=== PATIENT | female | born 1965 | race Asian ===

== ENCOUNTER 2022-10-24 00:26 | Day surgery (SDC) | payer OTHER, SELFPAY ==
[2022-10-17 12:39] VITALS: BMI 19.5
--- NOTE | 2022-10-21 13:15 | PM.HPGS ---
History of Present Illness History of Present Illness Consent: Risks, benefits, and alternatives have been discussed and questions answered. Patient agrees to proceed with procedure. Chief complaint: neoplasm screening Narrative: Mary Chau is a 57 year old female Referred for colon cancer screening. Review of Systems Review of Systems: All systems reviewed & are unremarkable except as noted in HPI and below PMFSH Social History Social History Living arrangements: with family Additional living arrangements comments: [phone] Spiritual care concerns: No Meds Home Medications and Allergies Home Medications Medication Instructions Recorded Confirmed Type Lactobacillus 1 cap PO DAILY 10/17/22 10/17/22 History acidophilus-Bifidobac.animalis 2.5 billion cell capsule (Daily Probiotic) calcium carbonate 600 mg-vitamin 1 tablet PO DAILY 10/17/22 10/17/22 History D3 5 mcg (200 unit) tablet multivit with minerals-iron 18 1 tablet PO DAILY 10/17/22 10/17/22 History mg-folic ac 400 mcg-vit K 25 mcg tablet (Adults Multivitamin) Allergies Allergy/AdvReac Type Severity Reaction Status Date / Time No Known Allergies Allergy Verified 10/24/22 06:50 Exam Const: General: alert Orientation/consciousness: patient oriented x3 Resp: Auscultation: clear to auscultation bilaterally Cardio: Rate: regular rate Rhythm: regular rhythm GI: GI Palp: Yes Soft to palpation and No Tenderness to palpation present (GI) Neuro: General: patient oriented x3 Assessment and Plan Assessment and plan (1) Colon cancer screening: Code(s): Z12.11 - Encounter for screening for malignant neoplasm of colon Status: Acute Assessment and Plan: Colonoscopy with possible biopsy or polypectomy or cautery or injection of substances.
[2022-10-24 06:51] VITALS: BP 121/74; PULSE 89; RESP 17; TEMP 36.6; O2SAT 99
[2022-10-24] MEDS: LACTATED RINGERS 1,000 ML 150 ML IV CONT (07:01)
--- NOTE | 2022-10-24 07:33 | P.PNAN_ITS ---
Anes - Initial Pre Proc Eval Procedure: Operation Date: 10/24/22 08:00 Proposed Procedures p Screening Colonoscopy - Ben Valente MD Date/Time: 10/24/22 07:33 Surgeon: Ben Valente MD Pre Op Diagnosis: neoplasm screening Patient Data Age: 57 Gender: F Height: 1.6 m Weight: 49 kg Last Vital Signs Temp 97.8 F 10/24/22 06:51 Pulse 89 10/24/22 06:51 Resp 17 10/24/22 06:51 BP 121/74 10/24/22 06:51 Pulse Ox 99 10/24/22 06:51 O2 Del Method Room Air 10/24/22 06:51 Allergies Allergy/AdvReac Type Severity Reaction Status Date / Time No Known Allergies Allergy Verified 10/24/22 06:50 Home Medications Medication Instructions Recorded Confirmed Type Lactobacillus 1 cap PO DAILY 10/17/22 10/17/22 History acidophilus-Bifidobac.animalis 2.5 billion cell capsule (Daily Probiotic) calcium carbonate 600 mg-vitamin 1 tablet PO DAILY 10/17/22 10/17/22 History D3 5 mcg (200 unit) tablet multivit with minerals-iron 18 1 tablet PO DAILY 10/17/22 10/17/22 History mg-folic ac 400 mcg-vit K 25 mcg tablet (Adults Multivitamin) Patient hx anesthesia problems: none Family hx anesthesia problems: none Results Review: All pre-operative results and documents have been reviewed as part of the pre- operative evaluation. [facility] Social History Social History Living arrangements: with family Additional living arrangements comments: [phone] Spiritual care concerns: No Anes - Eval Final PreProcedure Day of Procedure 10/24/22 07:33 Patient weight: normal Heart: regular rate and rhythm Lungs: clear to auscultation Airway: Mallampati scale class II Neurological: alert and oriented Last oral intake: >/= 8 hours ASA classification: II Emergent: no Anesthetic plan: proceed Anesthesia type and monitoring: general GIVS and standard monitoring Results Review: All pre-operative results and documents have been reviewed as part of the pre- operative evaluation. Informed Consent: The patient's anesthetic plan and its attendant risks and benefits were discussed with the patient/family/POA. Questions were solicited and answers provided to the satisfaction of the patient/family/POA.
[2022-10-24] MEDS: SIMETHICONE ORAL SUSPENSION 20 MG/0.3 ML 30 ML BOTTLE 0.6 ML IRRIGATION (07:54)
[2022-10-24 08:03] VITALS: BP 86/42; PULSE 86; RESP 18; O2SAT 98
[2022-10-24 08:13] VITALS: BP 95/54; PULSE 76; RESP 20; O2SAT 98
[2022-10-24 08:23] VITALS: BP 100/61; PULSE 60; RESP 18; O2SAT 100
== END 2022-10-24 08:35 | disposition home or self-care (01) ==
PROVIDERS: PCP Family Medicine; Visit Provider Internal Medicine Gastroenterology
PROC: 0DJD8ZZ Inspection of Lower Intestinal Tract, Via Natural or Artificial Opening Endoscopic (ICD-10-PCS; CPT 45378; principal; 2022-10-24 08:00)
DX: Z12.11 Encounter for screening for malignant neoplasm of colon (principal)
CPT/HCPCS: 45378; J2704; J7120

== ENCOUNTER 2024-11-01 08:20 | Outpatient (CLI) | payer OTHER, SELFPAY ==
--- NOTE | ~2024-11-01 | XR_ITS ---
Left elbow Technique: AP, oblique, and lateral views were obtained. Clinical History: Pain Findings: No acute fracture or dislocation is seen. Osseous alignment is anatomic. Joint spaces are p reserved. There is no displacement of the fat pads, and soft tissues are unremarkable. Impression: Unremarkable radiographs. Reviewed, dictated and finalized at location . [employer] Impression: Unremarkable radiographs.
--- NOTE | ~2024-11-01 | XR_ITS ---
Right elbow Technique: AP, oblique, and lateral views were obtained. Clinical History: Pain Findings: No acute fracture or dislocation is seen. Osseous alignment is anatomic. Joint spaces are p reserved. There is no displacement of the fat pads, and soft tissues are unremarkable. Impression: Unremarkable radiographs. Reviewed, dictated and finalized at [facility]. [employer] Impression: Unremarkable radiographs.
--- NOTE | ~2024-11-01 | XR_ITS ---
EXAMINATION: XR ankle LT min 3V DATE: 11/01/2024 08:46 INDICATION: Left ankle pain TECHNIQUE: Anteroposterior, oblique, mortise, and lateral views of the left ankle were obtained. COMPARISON: None. FINDINGS: Alignment is normal. No fracture. Joint spaces are well maintained. No ankle joint effusion. The so ft tissues are unremarkable. IMPRESSION: 1. Negative left ankle radiographs. Reviewed, dictated and finalized at location A. [employer]
== END 2024-11-01 08:21 | disposition home or self-care (01) ==
PROVIDERS: PCP Nurse Practitioner Family; Visit Provider Nurse Practitioner Family
DX: M77.01 Medial epicondylitis, right elbow (principal); M77.02 Medial epicondylitis, left elbow; M25.572 Pain in left ankle and joints of left foot
CPT/HCPCS: 73080; 73610

== ENCOUNTER 2024-12-26 08:30 | Outpatient (CLI) | payer OTHER, SELFPAY ==
--- NOTE | ~2024-12-26 | MM_ITS ---
EXAMINATION: MM screening [facility] BI w vanessa HISTORY: Screening TECHNIQUE: Craniocaudal and mediolateral oblique 3-D tomosynthesis images were obtained and synthetic 2-D images were generated. CAD analysis was submitted and interpreted. COMPARISON: 08/31/2011 BREAST PARENCHYMAL COMPOSITION: Dense: The breasts are heterogeneously dense, which may obscure small masses FINDINGS: There is a new mass in the lower inner quadrant of the left breast, middle third with assoc iated peripheral coarse calcifications. The right breast is stable without evidence for malignancy. IMPRESSION: 1. New left breast mass. 2. Additional mammographic views and possible breast ultrasound are recommended. BI-RADS Category 0: Incomplete: Needs additional imaging evaluation. Reviewed, dictated and finalized at location [] CTURAL IRON ERECTOR IMPRESSION: 1. New left breast mass. 2. Additional mammographic views and possible breast ultrasound are recommended . BI-RADS Category 0: Incomplete: Needs additional imaging evaluation.
--- OUTSIDE RECORDS SUMMARY | 2024-12-26 08:33 | XMS_ITS | Data Portability ---
Author Organization [place] - [facility], Main Office Address [address] [place] [address] Assessment No assessment recorded. Plan of Treatment Reminders Order Date Submit Date Provider Last Modified By Organization Details Last Modified Time Details Appointments None recorded. Lab pap, IG + CT/NG + reflex HR HPV 2022 023 [facility] (Lab), [address] [place], [address], 3 21:13:14 lipid panel, serum 2022 023 [facility] (Lab), [address] [place], [address], 13:28:09 CMP, serum or plasma 2022 023 [facility] (Lab), [address] [place], [address], 13:28:23 Referral None recorded. Procedures None recorded. Surgeries None recorded. Imaging MAMMO, screening, bilateral 2022 023 [email or web address] Not available 08:41:37 bone density 2022 023 LAUREEN Not available 15:32:37 Medication Orders None recorded. Patient TargetsNo targets recorded. Patient InstructionsNo instructions recorded. Reason for Referral None Reported. Results Created Date Observation Date Name Description Value Unit Range Abnormal Flag Note LastModifiedBy Organization Detail LastModifiedTime 05/25/20 21 05/25/2021 LIPID PANEL cholesterol 217 mg/dL 140-19 9 high NIH NANI NSUS RECOM MENDA TION FOR MARANDA STERO L: ADULT CHILD LOW RISK: <200 <170 BORDE RLINE : <200- 239 ----- HIGH RISK: >240 >200 Not Available [facility] (Lab) [address] [place], [address], 05/25/2021 20:20:33 05/25/20 21 05/25/2021 LIPID PANEL triglyceride s 185 mg/dL 0-150 high NIH NANI NSUS REPOR T RECOM MENDA TION FOR TRIGL YCERI GRETCHEN: ADULT CHILD LOW RISK: <150 ----- BODER LINE: 150-1 99 ----- HIGH RISK: >200 ----- Not Available [facility] (Lab) [address] [place], [address], 05/25/2021 20:20:33 05/25/20 21 05/25/2021 LIPID PANEL HDL cholesterol 41 mg/dL 40- Not Available [facility] (Lab) [address] [place], [address], 05/25/2021 20:20:33 05/25/20 21 05/25/2021 LIPID PANEL LDL cholesterol, calculated 139 mg/dL 0-130 high NIH NANI NSUS REPOR T RECOM MENDA TIONS FOR LDL: ADULT CHILD LOW RISK <130 <110 (OPTI MAL LDL) <100 ----- BORDE RLINE : 130-1 59 ----- HIGH RISK: >160 >130 A TRIGL YCERI DE RESUL T >400 INVAL IDATE S THE CALCU LATIO N FOR LDL FRACT IONAT ION - THE LDL RESUL T WILL NOT BE REPOR GRECIA. Not Available [facility] (Lab) [address] [place], [address], 05/25/2021 20:20:33 05/25/20 21 05/25/2021 COMPR EHENS SIRIA METAB OLIC PANEL sodium 141 mmol/ L 137-14 5 Not Available [facility] (Lab) [address] [place], [address], 05/25/2021 20:20:28 05/25/20 21 05/25/2021 COMPR EHENS SIRIA METAB OLIC PANEL potassium 4.2 mmol/ L 3.5-5. 1 Not Available [facility] (Lab) [address] [place], [address], 05/25/2021 20:20:28 05/25/20 21 05/25/2021 COMPR EHENS SIRIA METAB OLIC PANEL chloride 106 mmol/ L 98-107 Not Available [facility] (Lab) [address] [place], [address], 05/25/2021 20:20:28 05/25/20 21 05/25/2021 COMPR EHENS SRIIA METAB OLIC PANEL carbon dioxide 26 mmol/ L 22-30 Not Available [facility] (Lab) [address] [place], [address], 05/25/2021 20:20:28 05/25/20 21 05/25/2021 COMPR EHENS SIRIA METAB OLIC PANEL agap 13.2 mmol/ L 14-22 low Not Available [facility] (Lab) [address] [place], [address], 05/25/2021 20:20:28 05/25/20 21 05/25/2021 COMPR EHENS SIRIA METAB OLIC PANEL glucose 105 mg/dL 70-99 high Not Available [facility] (Lab) [address] [place], [address], 05/25/2021 20:20:28 05/25/20 21 05/25/2021 COMPR EHENS SIRIA METAB OLIC PANEL BUN 15 mg/dL 8-19 Not Available [facility] (Lab) [address] [place], [address], 05/25/2021 20:20:28 05/25/20 21 05/25/2021 COMPR EHENS SIRIA METAB OLIC PANEL creatinine 0.55 mg/dL 0.66-1 .25 low Not Available [facility] (Lab) [address] [place], [address], 05/25/2021 20:20:28 05/25/20 21 05/25/2021 COMPR EHENS SIRIA METAB OLIC PANEL GFR >60 Refer ence Range : [place] GFR Healt hy Adult : >60 mL/mi n/1.7 3 m2 Chron ic Kidne y Disea se: 15-60 mL/mi n/1.7 3 m2 Kidne y Failu re: <15/m L/min /1.73 m2 www.n iddk. nih.g ov MDRD study equat ion hasn' t been valid ated in child hannah <18 yrs of age, pregn ant women , the elder ly >85 yrs of age, or in some racia l or ethni c subgr oups, suc as Hispa nics. Outsi de the valid ated елена eters , estim ated GFR is less accur ate requi ring clini cary judgm ent on a case by case basis . Clini cary inter preta tion for other races and ages must be made by the clini gloria . Futhe rmore , any of th e limit ation s with the use of serum creat inine relat ed to nutri yohannes l statu s o r medic ation usage hasn' t accou nted for the MDRD Study equat ion. For perso ns < 18 yrs of age, a pedia tric GFR calcu lator can be locat ed on the [facility] websi te: https ://rox w.kid jo.o rg/pr ofess ional s/kdo qi/gf r_cal culat or Not Available [facility] (Lab) [address] [place], [address], 05/25/2021 20:20:28 05/25/20 21 05/25/2021 COMPR EHENS SIRIA METAB OLIC PANEL alkaline phosphatase 87 U/L 38-126 Not Available [facility] (Lab) [address] [place], [address], 05/25/2021 20:20:28 05/25/20 21 05/25/2021 COMPR EHENS SIRIA METAB OLIC PANEL alanine aminotransfe rase 27 U/L 0-35 Not Available [facility] (Lab) [address] [place], [address], 05/25/2021 20:20:28 05/25/20 21 05/25/2021 COMPR EHENS SIRIA METAB OLIC PANEL aspartate aminotransfe rase 37 U/L 15-37 Not Available [facility] (Lab) [address] [place], [address], 05/25/2021 20:20:28 05/25/20 21 05/25/2021 COMPR EHENS SIRIA METAB OLIC PANEL bilirubin, total 1.20 mg/dL 0.20-1 .30 Not Available [facility] (Lab) [address] [place], [address], 05/25/2021 20:20:28 05/25/20 21 05/25/2021 COMPR EHENS SIRIA METAB OLIC PANEL calcium 8.9 mg/dL 8.4-10 .2 Not Available [facility] (Lab) [address] [place], [address], 05/25/2021 20:20:28 05/25/20 21 05/25/2021 COMPR EHENS SIRIA METAB OLIC PANEL total protein 7.5 g/dL 6.3-8. 2 Not Available [facility] (Lab) [address] [place], [address], 05/25/2021 20:20:28 05/25/20 21 05/25/2021 COMPR EHENS SIRIA METAB OLIC PANEL albumin 4.6 g/dL 3.4-5. 0 Not Available [facility] (Lab) [address] [place], [address], 05/25/2021 20:20:28 05/25/20 21 05/25/2021 COMPR EHENS SIRIA METAB OLIC PANEL globulin 2.9 g/dL 2.6-4. 2 Not Available [facility] (Lab) [address] [place], [address], 05/25/2021 20:20:28 05/25/20 21 05/25/2021 COMPR EHENS SIRIA METAB OLIC PANEL A/G ratio 1.6 ratio 1.0-2. 0 Not Available [facility] (Lab) [address] [facility] [address] [place], [address], 05/25/2021 20:20:28 08/09/20 22 08/09/2022 COMPR EHENS SIRIA METAB OLIC PANEL sodium 141 mmol/ L 137-14 5 Not Available [facility] (Lab) [address] [place], [address], 08/09/2022 13:24:59 08/09/20 22 08/09/2022 COMPR EHENS SRIIA METAB OLIC PANEL potassium 4.2 mmol/ L 3.5-5. 1 Not Available [facility] (Lab) [address] [place], [address], 08/09/2022 13:24:59 08/09/20 22 08/09/2022 COMPR EHENS SIRIA METAB OLIC PANEL chloride 105 mmol/ L 98-107 Not Available [facility] (Lab) [address] [place], [address], 08/09/2022 13:24:59 08/09/20 22 08/09/2022 COMPR EHENS SIRIA METAB OLIC PANEL carbon dioxide 31 mmol/ L 22-30 high Not Available [facility] (Lab) [address] [place], [address], 08/09/2022 13:24:59 08/09/20 22 08/09/2022 COMPR EHENS SIRIA METAB OLIC PANEL anion gap 9.2 mmol/ L 14-22 low Not Available [facility] (Lab) [address] [place], [address], 08/09/2022 13:24:59 08/09/20 22 08/09/2022 COMPR EHENS SIRIA METAB OLIC PANEL glucose 98 mg/dL 70-99 Not Available [facility] (Lab) [address] [place], [address], 08/09/2022 13:24:59 08/09/20 22 08/09/2022 COMPR EHENS SIRIA METAB OLIC PANEL BUN 19 mg/dL 8-19 Not Available [facility] (Lab) [address] [place], [address], 08/09/2022 13:24:59 08/09/20 22 08/09/2022 COMPR EHENS SIRIA METAB OLIC PANEL creatinine 0.57 mg/dL 0.66-1 .25 low Not Available [facility] (Lab) [address] [place], [address], 08/09/2022 13:24:59 08/09/20 22 08/09/2022 COMPR EHENS SIRIA METAB OLIC PANEL GFR >60 Refer ence Range : [place] GFR Healt hy Adult : >60 mL/mi n/1.7 3 m2 Chron ic Kidne y Disea se: 15-60 mL/mi n/1.7 3 m2 Kidne y Failu re: <15/m L/min /1.73 m2 www.n iddk. nih.g ov The MDRD study equat ion has not been valid ated in child hannah <18 years of age; pregn ant women ; the elder ly >85 years of age; or in some racia l or ethni c subgr oups, such as Hispa nics. Outsi de the valid ated елена eters , estim ated GFR is less accur ate, requi ring clini cary judgm ent on a case- by-ca se basis . Clini cray inter preta tion for other races and ages must be made by the clini gloria. The MDRD study equat ion has not been valid ated for the evalu ation of serum creat inine relat ed to nutri yohannes l statu s or medic ation usage . For perso ns <18 years of age, a pedia tric GFR calcu lator is avail able on the [facility] websi te: https ://rox jenkins.sharmaine osorio.o rg/pr ofess ional s/kdo qi/gf r_cal culat or Not Available [facility] (Lab) [address] [place], [address], 08/09/2022 13:24:59 08/09/20 22 08/09/2022 COMPR EHENS SIRIA METAB OLIC PANEL alkaline phosphatase 69 U/L 38-126 Not Available [facility] (Lab) [address] [place], [address], 08/09/2022 13:24:59 08/09/20 22 08/09/2022 COMPR EHENS SIRIA METAB OLIC PANEL alanine aminotransfe rase 27 U/L 0-35 Not Available [facility] (Lab) [address] [place], [address], 08/09/2022 13:24:59 08/09/20 22 08/09/2022 COMPR EHENS SIRIA METAB OLIC PANEL aspartate aminotransfe rase 29 U/L 15-37 Not Available [facility] (Lab) [address] [place], [address], 08/09/2022 13:24:59 08/09/20 22 08/09/2022 COMPR EHENS SIRIA METAB OLIC PANEL bilirubin, total 1.00 mg/dL 0.20-1 .30 Not Available [facility] (Lab) [address] [place], [address], 08/09/2022 13:24:59 08/09/20 22 08/09/2022 COMPR EHENS SIRIA METAB OLIC PANEL calcium 9.1 mg/dL 8.4-10 .2 Not Available [facility] (Lab) [address] [place], [address], 08/09/2022 13:24:59 08/09/20 22 08/09/2022 COMPR EHENS SIRIA METAB OLIC PANEL total protein 7.2 g/dL 6.3-8. 2 Not Available [facility] (Lab) [address] [place], [address], 08/09/2022 13:24:59 08/09/20 22 08/09/2022 COMPR EHENS SIRIA METAB OLIC PANEL albumin 4.4 g/dL 3.4-5. 0 Not Available [facility] (Lab) [address] [place], [address], 08/09/2022 13:24:59 08/09/20 22 08/09/2022 COMPR EHENS SIRIA METAB OLIC PANEL globulin 2.8 g/dL 2.6-4. 2 Not Available [facility] (Lab) [address] [place], [address], 08/09/2022 13:24:59 08/09/20 22 08/09/2022 COMPR EHENS SIRIA METAB OLIC PANEL A/G ratio 1.6 ratio 1.0-2. 0 Not Available [facility] (Lab) [address] [place], [address], 08/09/2022 13:24:59 08/09/20 22 08/09/2022 HEMOG LOBIN A1C HA1C 5.4 % 4.0-6. 0 Diabe kiko Scree evangelista Crite ari: <5.7% Consi stent with absen ce of diabe kiko 5.7-6 .4% Consi stent with incre ased risk for diabe kiko (pred iabet es) >OR=6 .5% Consi stent with diabe kiko REFER ENCE: Diabe kiko Care 2016, 39(Francisco ppl.1 ):s13 -s22 Not Available [facility] (Lab) [address] [place], [address], 08/09/2022 13:24:53 08/09/20 22 08/09/2022 LIPID PANEL cholesterol 125 mg/dL 140-19 9 low NIH NANI NSUS RECOM MENDA TION FOR MARANDA STERO L: ADULT CHILD LOW RISK: <200 <170 BORDE RLINE : <200- 239 ----- HIGH RISK: >240 >200 Not Available [facility] (Lab) [address] [place], [address], 08/09/2022 13:24:51 08/09/20 22 08/09/2022 LIPID PANEL triglyceride s 106 mg/dL 0-150 NIH NANI NSUS REPOR T RECOM MENDA TION FOR TRIGL YCERI GRETCHEN: ADULT CHILD LOW RISK: <150 ----- BODER LINE: 150-1 99 ----- HIGH RISK: >200 ----- Not Available [facility] (Lab) [address] [place], [address], 08/09/2022 13:24:51 08/09/20 22 08/09/2022 LIPID PANEL HDL cholesterol 44 mg/dL 40- Not Available [facility] (Lab) [address] [place], [address], 08/09/2022 13:24:51 08/09/20 22 08/09/2022 LIPID PANEL LDL cholesterol, calculated 60 mg/dL 0-130 NIH NANI NSUS REPOR T RECOM MENDA TIONS FOR LDL: ADULT CHILD LOW RISK <130 <110 (OPTI MAL LDL) <100 ----- BORDE RLINE : 130-1 59 ----- HIGH RISK: >160 >130 A TRIGL YCERI DE RESUL T >400 INVAL IDATE S THE CALCU LATIO N FOR LDL FRACT IONAT ION - THE LDL RESUL T WILL NOT BE REPOR GRECIA. Not Available [facility] (Lab) [address] [place], [address], 08/09/2022 13:24:51 09/05/20 23 09/05/2023 LIPID PANEL cholesterol 206 mg/dL 140-19 9 high NIH NANI NSUS RECOM MENDA TION FOR MARANDA STERO L: ADULT CHILD LOW RISK: <200 <170 BORDE RLINE : <200- 239 ----- HIGH RISK: >240 >200 Not Available [facility] (Lab) [address] [place], [address], 09/05/2023 13:28:09 09/05/20 23 09/05/2023 LIPID PANEL triglyceride s 169 mg/dL 0-150 high NIH NANI NSUS REPOR T RECOM MENDA TION FOR TRIGL YCERI GRETCHEN: ADULT CHILD LOW RISK: <150 ----- BODER LINE: 150-1 99 ----- HIGH RISK: >200 ----- Not Available [facility] (Lab) [address] [place], [address], 09/05/2023 13:28:09 09/05/2009/05/2023 LIPID PANEL HDL cholesterol 54 mg/dL 40- Not Available [facility] (Lab) [address] [place], [address], 09/05/2023 13:28:09 09/05/20 23 09/05/2023 LIPID PANEL LDL cholesterol, calculated 118 mg/dL 0-130 NIH NANI NSUS REPOR T RECOM MENDA TIONS FOR LDL: ADULT CHILD LOW RISK <130 <110 (OPTI MAL LDL) <100 ----- BORDE RLINE : 130-1 59 ----- HIGH RISK: >160 >130 A TRIGL YCERI DE RESUL T >400 INVAL IDATE S THE CALCU LATIO N FOR LDL FRACT IONAT ION - THE LDL RESUL T WILL NOT BE REPOR GRECIA. Not Available [facility] (Lab) [address] [place], [address], 09/05/2023 13:28:09 09/05/20 23 09/05/2023 COMPR EHENS SIRIA METAB OLIC PANEL sodium 139 mmol/ L 137-14 5 Not Available [facility] (Lab) [address] [place], [address], 09/05/2023 13:28:23 09/05/2009/05/2023 COMPR EHENS SIRIA METAB OLIC PANEL potassium 4.9 mmol/ L 3.5-5. 1 Not Available [facility] (Lab) [address] [place], [address], 09/05/2023 13:28:23 09/05/2009/05/2023 COMPR EHENS SIRIA METAB OLIC PANEL chloride 105 mmol/ L 98-107 Not Available [facility] (Lab) [address] [place], [address], 09/05/2023 13:28:23 09/05/20 23 09/05/2023 COMPR EHENS SIRIA METAB OLIC PANEL carbon dioxide 28 mmol/ L 22-30 Not Available [facility] (Lab) [address] [place], [address], 09/05/2023 13:28:23 09/05/20 23 09/05/2023 COMPR EHENS SIRIA METAB OLIC PANEL anion gap 10.9 mmol/ L 14-22 low Not Available [facility] (Lab) [address] [place], [address], 09/05/2023 13:28:23 09/05/20 23 09/05/2023 COMPR EHENS SIRIA METAB OLIC PANEL glucose 114 mg/dL 70-99 high Not Available [facility] (Lab) [address] [place], [address], 09/05/2023 13:28:23 09/05/20 23 09/05/2023 COMPR EHENS SIRIA METAB OLIC PANEL BUN 12 mg/dL 8-19 Not Available [facility] (Lab) [address] [place], [address], 09/05/2023 13:28:23 09/05/2009/05/2023 COMPR EHENS SIRIA METAB OLIC PANEL creatinine 0.59 mg/dL 0.66-1 .25 low Not Available [facility] (Lab) [address] [place], [address], 09/05/2023 13:28:23 09/05/2009/05/2023 COMPR EHENS SIRIA METAB OLIC PANEL GFR >60 Refer ence Range : [place] GFR Healt hy Adult : >60 mL/mi n/1.7 3 m2 Chron ic Kidne y Disea se: 15-60 mL/mi n/1.7 3 m2 Kidne y Failu re: <15/m L/min /1.73 m2 www.n iddk. nih.g ov The MDRD study equat ion has not been valid ated in child hannah <18 years of age; pregn ant women ; the elder ly >85 years of age; or in some racia l or ethni c subgr oups, such as Hispa nics. Outsi de the valid ated елена eters , estim ated GFR is less accur ate, requi ring clini cary judgm ent on a case- by-ca se basis . Clini cary inter preta tion for other races and ages must be made by the clini gloria. The MDRD study equat ion has not been valid ated for the evalu ation of serum creat inine relat ed to nutri yohannes l statu s or medic ation usage . For perso ns <18 years of age, a pedia tric GFR calcu lator is avail able on the F websi te: https ://ww w.kid jo.o rg/pr ofess ional s/kdo qi/gf r_cal culat or Not Available [facility] (Lab) [address] [place], [address], 09/05/2023 13:28:23 09/05/2009/05/2023 COMPR EHENS SIRIA METAB OLIC PANEL alkaline phosphatase 83 U/L 38-126 Not Available [facility] (Lab) [address] [place], [address], 09/05/2023 13:28:23 09/05/20 23 09/05/2023 COMPR EHENS SIRIA METAB OLIC PANEL alanine aminotransfe rase 28 U/L 0-35 Not Available [facility] (Lab) [address] [place], [address], 09/05/2023 13:28:23 09/05/20 23 09/05/2023 COMPR EHENS SIRIA METAB OLIC PANEL aspartate aminotransfe rase 37 U/L 15-37 Not Available [facility] (Lab) [address] [place], [address], 09/05/2023 13:28:23 09/05/2009/05/2023 COMPR EHENS SIRIA METAB OLIC PANEL bilirubin, total 1.30 mg/dL 0.20-1 .30 Not Available [facility] (Lab) [address] [place], [address], 09/05/2023 13:28:23 09/05/20 23 09/05/2023 COMPR EHENS SIRIA METAB OLIC PANEL calcium 10.0 mg/dL 8.4-10 .2 Not Available [facility] (Lab) [address] [place], [address], 09/05/2023 13:28:23 09/05/2009/05/2023 COMPR EHENS SIRIA METAB OLIC PANEL total protein 7.8 g/dL 6.3-8. 2 Not Available [facility] (Lab) [address] [place], [address], 09/05/2023 13:28:23 09/05/20 23 09/05/2023 COMPR EHENS SIRIA METAB OLIC PANEL albumin 4.8 g/dL 3.4-5. 0 Not Available [facility] (Lab) [address] [place], [address], 09/05/2023 13:28:23 09/05/20 23 09/05/2023 COMPR EHENS SIRIA METAB OLIC PANEL globulin 3.0 g/dL 2.6-4. 2 Not Available [facility] (Lab) [address] [place], [address], 09/05/2023 13:28:23 09/05/20 23 09/05/2023 COMPR EHENS SIRIA METAB OLIC PANEL A/G ratio 1.6 ratio 1.0-2. 0 Not Available [facility] (Lab) [address] [place], [address], 09/05/2023 13:28:23 09/29/20 23 10/04/2023 PAP THINP REP, REFLE X HPV diagnosis: Commemmanuelle BEVERLY FOR INTRA EPITH ELIAL LESIO N OR MALIG BHAVNA . CELLU TEE BOLES ES ASSOC IATED WITH ATROP HY ARE PRESE NT. Not Available [facility] (Lab) [address] [place], [address], 10/04/2023 19:08:36 09/29/20 23 10/04/2023 PAP THINP REP, REFLE X HPV specimen adequacy: Sandy Infante Satis facto kendrick for evalu ation . Endoc ervic al and/o r squam ous m etapl astic cells (endo cervi cary compo nent) are prese nt. Not Available [facility] (Lab) [address] [place], [address], 10/04/2023 19:08:36 09/29/20 23 10/04/2023 PAP THINP REP, REFLE X HPV performed by: Sandy lee Cytorosendo echkarl wang t (ASCP ) Not Available [facility] (Lab) [address] [place], [address], 10/04/2023 19:08:36 09/29/20 23 10/04/2023 PAP THINP REP, REFLE X HPV . . Not Available [facility] (Lab) [address] [place], [address], 10/04/2023 19:08:36 09/29/20 23 10/04/2023 PAP THINP REP, REFLE X HPV note: Commen t The Pap smear is a scree evangelista test desig veronica to aid in the detec tion of kia ligna nt and malig nant condi tions of the uteri ne cervi x. It is not a diagn ostic proce dure and shoul d not be used as the sole means of detec ting cervi cary cance r. Both false -posi tive and false -nega tive repor ts do occur . . Not Available [facility] (Lab) [address] [place], [address], 10/04/2023 19:08:36 09/29/20 23 10/04/2023 PAP THINP REP, REFLE X HPV test methodology: Commen t This liqui d based ThinP rep(R ) pap test was scree veronica with the use of an image guide d syste m. Not Available [facility] (Lab) [address] [place], [address], 10/04/2023 19:08:36 09/29/20 23 10/04/2023 PAP THINP REP, REFLE X HPV . Commen t The HPV DNA refle x crite ari were not met with this speci men resul t there fore, no HPV testi ng was perfo rmed. . Perfo rmed at: [facility] [place] [address] , [place] [address] Lab Direc tor: Brenden villa MD, Phone : [phone] Not Available [facility] (Lab) [address] [place], [address], 10/04/2023 19:08:36 05/25/20 21 05/25/2021 MAMMO , scree evangelista, bilat eral No observ ation record ed. [id number] [facility] [address], [place], [address], 01/11/2023 20:40:25 05/25/20 21 MAMMO , scree evangelista, digit al, bilat eral [facility] [address], [place] [address] Patien t Name: MARY CEJA Access ion #: [id number] Sex: F : 1964 9 Locati on: MO2 Attend ing Physic timothy: ELKHAT IB, RUNDA Orderi ng Physic timothy: ELKHAT IB, RUNDA Exam Date: 10:21 AM Exam Name: DIGITA L DERRICK BILAT SCREEN Admitt ing Diagno sis(es ): RADIOL OGY REPORT - FINAL EXAM: MG DIGITA L DERRICK BILAT SCREEN HISTOR Y: screen ing mammog clark COMPAR DELANEY: Mammog manjit dated 2018 and 2018 TECHNI QUE: Bilate ral CC and MLO views of the breast s were perfor med. Digita l Mammog manjit images were obtain ed. CAD (compu ter assist ed detect ion) was utiliz ed. FINDIN GS: The breast s are hetero geneou sly dense, which may obscur e small masses . A left lower inner quadra nt mass is again noted. No other masses , asymme tries, suspic ious calcif icatio ns, or jhon ectura l Page 1 of 2 [facility] Name: MARY CEJA Access ion #: [id number] Sex: F : 1964 11 Exam Date: 021 10:21 AM Exam Name: DIGITA L DERRICK BILAT SCREEN Admitt ing Diagno sis(es ): distor tion are seen. IMPRES SHELIA: BIRADS 0: Assess ment incomp lete. Need additi onal imagin g evalua tion. Ultras ound of the left breast mass is recomm ended. Accord ing to the [employer], yearly mammog armen are recomm ended starti ng at age 40 and contin uing as long as the woman is in good health . Clinic al Breast Exam should be part of the period ic health exam-a bout every 3 years for women in their 20s and 30s and every year for women 40 and over. Breast self-e xam is an option for women in their 20s. Any breast change noted on the breast self-e xam she would be report ed prompt ly to the [facility] er. A negati ve mammog manjit report should not discou rage follow -up or biopsy of a clinic ally signif icant findin g and/or abnorm ality. Dense breast tissue may obscur e small neopla sms. This [facility] robbins has been entere d into a mammog manjit remind er system with a target date for her next mammog clark. Create d and electr onical ly signed by: Jarod Mehta ch, DO Signed Date: 2:25 PM (CT) Dictat ed by: Jarod Mehta ch, DO DD: 2:25 PM (CT) DT: 2:25 PM (CT) Page 2 of 2 [id number] [facility] (Imaging) [address] [place], [address], 01/11/2023 20:40:25 06/07/20 21 , steve marc [facility] [address] [place] [address] Lamont robbins Name: MARY CEJA Access ion #: [id number] Sex: F : 1964 7 Locati on: RA2 Attend ing Physic timothy: ELKHAT IB, RUNDA Orderi ng Physic timothy: ELKHAT IB, RUNDA Exam Date: 9:57 AM Exam Name: US BREAST LIMITE D LT Admitt ing Diagno sis(es ): RADIOL OGY REPORT - FINAL EXAM: US BREAST LIMITE D LT HISTOR Y: ABNORM AL MAMM COMPAR DELANEY: Mammog manjit dated 2020, 2018 and ultras ound dated 2018 of the left breast . TECHNI QUE: Focuse d ultras ound evalua tion of the left left breast was perfor med. FINDIN GS: A solid shadow ing ovoid lesion at the 10 o'cloc k positi on 3 cm from the nipple . 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 This has enlarg ed slight ly from prior exam where it measur ed 1.7 x 0.8 x 1.5 cm. Page 1 of 2 [facility] Name: MARY CEJA Access ion #: [id number] Sex: F : 1964 5 Exam Date: 9:57 AM Exam Name: US BREAST LIMITE D LT Admitt ing Diagno sis(es ): IMPRES SHELIA: BIRADS 4a: Suspic ious: Recomm end ultras ound-g uided biopsy of the 1.9 cm left breast hypoec hoic nodule . Recomm end return ing to annual screen ing mammog manjit. Any decisi on to biopsy a suspic ious palpab le abnorm ality would have to be made solely on a clinic al basis. Create d and electr onical ly signed by: Jarod Mehta ch, DO Signed Date: 10:27 AM (CT) Dictat ed by: Jarod Mehta ch, DO DD: 10:27 AM (CT) DT: 10:27 AM (CT) Page 2 of 2 [id number] [facility] (Imaging) [address] [place], [address], 01/11/2023 20:40:25 06/07/20 21 06/07/2021 osman RADFORD, limit ed No observ ation record ed. [id number] [facility] [address] [place], [address], 01/11/2023 20:40:25 06/07/20 21 06/07/2021 osman RADFORD, limit ed No observ ation record ed. [id number] [facility] [address] [place], [address], 01/11/2023 20:40:25 06/07/20 21 USosman, unila teral [facility] [address] [facility] [place] [address] Lexiemmanuelle robbins Name: MARY CEJA KidoZen ion #: [id number] Sex: F : 1964 5 Locati on: RA2 Attend ing Physic timothy: ELKHAT IB, RUNDA Orderi ng Physic timothy: ELKHAT IB, RUNDA Exam Date: 021 11:02 AM Exam Name: US BREAST LIMITE D LT Admitt ing Diagno sis(es ): RADIOL OGY REPORT - FINAL EXAM: US BREAST LIMITE D LT HISTOR Y: ABNORM AL MAMM COMPAR DELANEY: Mammog manjit dated 2020, 2018 and ultras ound dated 2018 of the left breast . TECHNI QUE: Focuse d ultras ound evalua tion of the left breast was perfor med. FINDIN GS: A solid shadow ing ovoid lesion at the 10 o'cloc k positi on 3 cm from the nipple . 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 This has enlarg ed slight ly from prior exam where it measur ed 1.7 x 0.8 x 1.5 cm. Page 1 of 2 [facility] Lamont robbins Name: MARY CEJA Access ion #: [id number] Sex: F : 1964 5 Exam Date: 11:02 AM Exam Name: US BREAST LIMITE D LT Admitt ing Diagno sis(es ): IMPRES SHELIA: BIRADS 4a: Suspic ious: Recomm end ultras ound-g uided biopsy of the 1.9 cm left breast hypoec hoic nodule . Create d and electr onical ly signed by: Jarod Mehta ch, DO Signed Date: 11:15 AM (CT) Dictat ed by: Jarod Mehta ch, DO DD: 11:15 AM (CT) DT: 11:15 AM (CT) Page 2 of 2 [id number] [facility] (Imaging) [address] [place], [address], 01/11/2023 20:40:25 08/09/20 22 08/09/2022 MAMMO , scree evangelista, bilat eral No observ ation record ed. [id number] [facility] Add On Lab Orders [address] [place], [address], 01/11/2023 20:40:25 08/09/20 22 MAMMO , scree evangelista, digit al, bilat eral [facility] [address] [place] [address] Patien t Name: MARY CEJA Access ion #: [id number] Sex: F : 1964 0 Locati on: MO2 Attend ing Physic timothy: ELKHAT IB, RUNDA Orderi ng Physic timothy: ELKHAT IB, RUNDA Exam Date: 8:00 AM Exam Name: MG DIGITA L DERRICK BILAT SCREEN Admitt ing Diagno sis(es ): RADIOL OGY REPORT - FINAL EXAM: MG DIGITA L DERRICK BILAT SCREEN HISTOR Y: screen ing mammog clark 56-yea r-old female with no curren t breast compla ints. The lamont robbins has a histor y of benign excisi onal biopsy of the right breast in 2012. COMPAR DELANEY: 2020, 2018 TECHNI QUE: Bilate ral CC and MLO views of the breast s were perfor med. Digita l Mammog manjit images were obtain ed. CAD (compu ter assist ed detect ion) was utiliz ed. FINDIN GS: The breast s are hetero geneou sly dense, which may obscur e small masses . Page 1 of 2 [facility] Lamont robbins Name: MARY CEJA Access ion #: [id number] Sex: F : 1964 0 Exam Date: 022 8:00 AM Exam Name: MG DIGITA L DERRICK BILAT SCREEN Admitt ing Diagno sis(es ): There is a stable left mid slight ly inner breast partia lly calcif ied mass. No new masses , asymme tries, suspic ious calcif icatio ns, or new areas of jhon ectura l distor tion are seen. IMPRES SHELIA: BIRADS 2: Assess ment comple te. Benign findin gs. Recomm end annual screen ing mammog manjit. Accord ing to the [employer], yearly mammog armen are recomm ended starti ng at age 40 and contin uing as long as the woman is in good health . Clinic al Breast Exam should be part of the period ic health exam-a bout every 3 years for women in their 20s and 30s and every year for women 40 and over. Breast self-e xam is an option for women in their 20s. Any breast change noted on the breast self-e xam she would be report ed prompt ly to the [facility] care provid er. A negati ve mammog manjit report should not discou rage follow -up or biopsy of a clinic ally signif icant findin g and/or abnorm ality. Dense breast tissue may obscur e small neopla sms. This lamont robbins has been entere d into a mammog manjit remind er system with a target date for her next mammog clark. Create d and electr onical ly signed by: Zachary villa MD Signed Date: 10:14 AM (CT) Dictat ed by: Zachary villa MD DD: 10:14 AM (CT) DT: 10:14 AM (CT) Page 2 of 2 [id number] [facility] (Imaging) [address] [place], [address], 01/11/2023 20:40:25 09/19/20 23 MAMMO , scree evangelista, digit al, bilat eral [facility] [address] [place] [address] Lamont robbins Name: MARY CEJA Access ion #: [id number] Sex: F : 1964 1 Dictat ed By: Lawrence Syed Attend ing Physic timothy: ELKHAT IB, RUNDA Orderi ng Physic timothy: ELKHAT IB, RUNDA Exam Date: 2022 09:52 AM Exam Name: MG DIGITA L DERRICK BILAT SCREEN Admitt ing Diagno sis(es ): Compar delaney: 2 Screen ing mammog clark Techni que: Bilate ral CC and latera l images obtain ed are fulfil led Breast compos ition: Hetero genous ly dense. Digita l techni que per standa rd protoc ol Findin gs: No suspic ious mass or calcif icatio n is identi fied. No jhon ectura l distor tion is seen. There are no abnorm alitie s around the nipple areola r comple x. No adenop athy is apprec iated. . Conclu shelia: No mammog raphic eviden ce of malign los. Mammog raphic assess ment catego ry: BI-RAD S catego ry: 1 Negati ve A letter with the result s of this mammog clark was mailed to the patien t Electr onical ly Signed by: Lawrence Syed at 2022 11:47: 35 AM Page [address] (Imaging) [address] [place], [address], 09/19/2023 14:22:29 09/19/20 23 09/19/2023 MAMMO , scree evangelista, bilat eral No observ ation record ed. [address] [place], [address], 09/19/2023 14:22:30 09/19/20 23 DEXA, axial skele ton [facility] [address] [place] [address] Patien t Name: MARY CEJA Access ion #: [id number] Sex: F : 1964 1 Dictat ed By: James King Attend ing Physic timothy: JULIANNE HOYOS Orderi Physic timothy: PIPPA HONEYCUTT RUNANA Exam Date: 2022 09:52 AM Exam Name: XR DEXA AXIAL/ HIP/PE LVIS/S PINE Admitt ing Diagno sis(es ): DEXA SCAN: BONE DENSIT Y REPORT : Bone minera l densit y (BMD) Please refer to DEXA worksh eet for specif ic BMD and T score 10 YEAR FRACTU RE RISK* Not report ed IMPRES SHELIA: Normal lumbar spine and osteop enia bilate ral hips ------ ------ ------ ------ ------ ------ ------ ------ ----- *FRAX versio n 3.08. Fractu re probab ility calcul ated for an untrea grecia patien t. Fractu re probab ility may be lower if the patien t has receiv ed treatm ent. T-scor e: compar delaney by daniel fajardo ion (SD) to a young adult popula kushal noguera for sex and ethnic ity (used for postme nopaus al women and men >50 years) and classi fied by WHO criter ia. ?-1.0: normal <-1.0 to >-2.5: osteop enia ?-2.5: osteop orosis ?-2.5 plus fragil ity fractu re: severe osteop orosis Z-scor e: compar ed by SD to an age, sex, and ethnic ity popula tion (used for premen opausa l women, men <50 years, and childr en instea d of T-scor e WHO criter ia 4) <-2.0: below expect ed range/ low bone densit y for age, and a cause should be sought Page 1 [facility] [address] [place] [address] Patiemmanuelle t Name: MARY CEJA Access ion #: [id number] Sex: F : 1964 1 Dictat ed By: James King Attend ing Physic timothy: PIPPA SU Orderi Physic timothy: PIPPA HONEYCUTT RUNDA Exam Date: 2022 09:52 AM Exam Name: XR DEXA AXIAL/ HIP/PE LVIS/S PINE Admitt ing Diagno sis(es ): Electr onical ly Signed by: James King at 2022 14:28: 58 PM Page 2 [facility] (Imaging) [address] [place], [address], 09/20/2023 12:10:35 09/19/20 23 09/19/2023 bone densi ty No observ ation record ed. [email or web address] [facility] [address] [place], [address], 09/20/2023 12:10:35 Result Notes None recorded. Problems Name Problem SNOMED Code Status Onset Date Resolution Date Notes Provider Name and Address Organization Details Recorded Time Hyperlipidemia 89137311 Active 2022 Not Available [facility] 3 01:53:55 Problem Notes None recorded. Procedures Surgical History Date Name Laterality Status Provider Name and Address Organization Details Recorded Time Breast Biopsy completed Not Available [facility] 01/11/2023 20:39:04 loop electrosurgical excision procedure completed Not Available [facility] 01/12/20 20:39:04 Imaging Results Imaging Date Name Status LastModified by [facility] Details LastModified Time 08/09/2022 MAMMO, screening, bilateral completed [id number] [facility] Add On Lab Orders [address] [place], [address], 01/11/2023 20:40:25 08/09/2022 MAMMO, screening, digital, bilateral completed [id number] [facility] (Imaging) [address] [place], [address], 01/11/2023 20:40:25 05/25/2021 MAMMO, screening, bilateral completed [id number] [facility] [address] [place], [address], 01/11/2023 20:40:25 05/25/2021 MAMMO, screening, digital, bilateral completed [id number] [facility] (Imaging) [address] [place], [address], 01/11/2023 20:40:25 06/07/2021 US, breast, unilateral completed [id number] [facility] (Imaging) [address] [place], [address], 01/11/2023 20:40:25 06/07/2021 US, breast, limited completed [id number] [facility] [address] [place], [address], 01/11/2023 20:40:25 06/07/2021 US, breast, limited completed [id number] [facility] [address] [place], [address], 01/11/2023 20:40:25 06/07/2021 US, breast, unilateral completed [id number] [facility] (Imaging) [address] [place], [address], 01/11/2023 20:40:25 09/19/2023 MAMMO, screening, digital, bilateral completed [address] (Imaging) [address] [place], [address], 09/19/2023 14:22:29 09/19/2023 MAMMO, screening, bilateral completed [address] [place], [address], 09/19/2023 14:22:30 09/19/2023 DEXA, axial skeleton completed [facility] (Imaging) [address] [place], [address], 09/20/2023 12:10:35 09/19/2023 bone density completed [email or web address] [facility] [address] [place], [address], 09/20/2023 12:10:35 Procedure Notes None recorded. Medical Equipment None Reported. Allergies No known drug allergies Medications Name Sig Start Date Stop Date Status Note LastModified by Organization Details LastModified Time atorvastatin 20 mg tablet Take 1 tablet every day by oral route. active Not Available Not Available No t Available atorvastatin 10 mg tablet TAKE 1 TABLET DAILY active Not Available Not Available No t Available omeprazole 20 mg capsule,danna yed release 1 po daily active Not Available Not Available No t Available Estrace 0.01% (0.1 mg/gram) vaginal cream Insert 1 g 3 times a week by vaginal route for 90 days. 05/20 completed Not Available Not Available Not Available Vitals Date Recorded Body mass index (BMI) Body mass index (BMI) Body height Body height Oxygen saturation Oxygen saturation in Arterial blood by Pulse oximetry Oxygen saturation Oxygen saturation in Arterial blood by Pulse oximetry Heart rate Heart rate Body temperature Body temperature Body weight Body weight Systolic blood pressure Diastolic blood pressure Systolic blood pressure Diastolic blood pressure Provider Name and Address Organization Details Last Updated DateTime 03/01/202 3 19.3 kg/m2 19.8 kg/m2 160.02 cm 160.02 cm 99 % 99 % 98 % 98 % 90 /min 73 /min 97.2 [degF] 97 [degF] 78003.5 7 g 31549.3 5 g 90 mm[Hg] 68 mm[Hg] 100 mm[Hg] 70 mm[Hg] Not Available [facility] 3 20:39:15 Date Recorded Body weight Body temperature Heart rate Oxygen saturation Oxygen saturation in Arterial blood by Pulse oximetry Systolic blood pressure Diastolic blood pressure Provider Name and Address Organization Details Last Updated DateTime 3 15449.4 2 g 96.5 [degF] 70 /min 97 % 97 % 100 mm[Hg] 64 mm[Hg] Magda puga CMA [place] [facility] 3 10:49:38 Date Recorded Body weight Body mass index (BMI) Body height Body temperature Heart rate Oxygen saturation Oxygen saturation in Arterial blood by Pulse oximetry Systolic blood pressure Diastolic blood pressure Provider Name and Address Organization Details Last Updated DateTime 3 54045.0 1 g 18.8 kg/m2 157.48 cm 97.4 [degF] 78 /min 96 % 96 % 93 mm[Hg] 63 mm[Hg] Alice Dukes MA [facility] 3 11:44:45 Social History Question Answer Notes LastModified by Organizat ion Details LastModified Time Tobacco Smoking Status Never Smoker Kalani lazaro [employer] 09/29/2023 11:20:17 What Is Your Level Of Alcohol Consumption? None [id number] Information not available 01/11/2023 In The 14 Days Before Symptom Onset, Have You Had Close Contact With A Laboratory-confirm ed COVID-19 While That Case Was Ill? No [email or web address] Information n ot available 09/29/2023 In The 14 Days Before Symptom Onset, Have You Had Close Contact With A Person Who Is Under Investigation For COVID-19 While That Person Was Ill? No [email or web address] Information not available 09/29/2023 Sex: Unknown Functional Status None recorded. Mental Status None recorded. Family History Relationship Description Onset Age of this Age Resolved Age Notes LastModified by Organization Details LastModified Time Father Family history of malignant neoplasm [id number] Not available 01/11/2023 20:39:04 Mother Family history of malignant neoplasm [id number] Not available 01/11/2023 20:39:04 Medical History No medical history recorded. Gynecological HistoryNo gynecological history recorded. Obstetrics History GPAL:G 0 P 0 0 0 0 Past Encounters Encounter ID Performer Location Encounter Start Date Encounter Closed Date Diagnosis/Indication Diagnosis SNOMED-CT Code Diagnosis ICD10 Code Diagnosis Note [id number] [facility] Maury lldaisy [address] [facility] [place] [address] 05/20/2021 00:00:00 05/21/2021 06:11:58 [id number] [facility] Maury bell [address] [place] [address] [place] [address] 08/02/2022 00:00:00 08/02/2022 20:18:04 [id number] Julianne Swanson MD [facility] Maury bell [address] [place] [address] [place] [address] 09/05/2023 10:37:58 09/05/2023 11:11:03 Adult health examination 995649998 Z00.00 Hyperlipidemia 35416017 E78.5 At [facility] risk of osteoporosis 652988191 Z91.89 Screening for malignant neoplasm of breast 930011399 Z12.39 [id number] Julianne Swanson MD [facility] Maury bell [address] [place] [address] [place] [address] 09/29/2023 11:20:13 09/29/2023 12:13:01 Gynecologic examination 35256867 Z01.419 Health Concerns Section Related Observation LastModified by Organization Detai ls LastModified Time None Recorded Concern Status LastModified by Organization Details LastModified Time None Recorded Advance Directives Directive None Recorded Payers Encounter Date Sequence Insurance Name Policy Number Policy Bowman Covered Member ID Bowman Member ID Guarantor Name 09/05/2023 1 [facility] () Gabriel Ceja [id number] [employer] Isac 09/29/2023 1 [facility] () Gabriel Ceja [id number] Mary Ceja Notes Date Note Type Note Provider Name and Address Organization Details Recorded Time 09/05/2023 text/html Here today for adult physical. Last menses was 7 years ago. Needs mammogram. Needs Lipid and CMP. Had a colonoscopy and was good. Needs bone density test.Pt has a hx of abnormal paps and wants this checked out at another visit.She is having no complaints today other than gets occasional cramping of lower legs. Julianne Swanson MD [address], [place], [address], [facility] 09/06/2023 05:42:10 09/29/2023 text/html Here today for WWE. She has had a hx of cervical polyps and has not had a pap in over 5 years. No hx of cervical cancer in fmx. Pt had a mammogram and it was ok. Is UTD with colon cancer screening and did have BW recently has high cholesterol and elevated FBS. Julianne Swanson MD [address], [place], [address], [facility] 09/30/2023 10:11:14 OBGyn Episode No OBEpisode recorded.
--- OUTSIDE RECORDS SUMMARY | 2024-12-26 08:34 | XMS_ITS ---
Author Organization [facility] Address [address] [place] [address] Phone Care Team Providers Care Manager Fine Dining Name Role Phone Unavailable Unavailable Unavailable Plan of Treatment Instructions to patient Instructions for patient : B reast Self Exam discussed Last Documented On 7 10:48AM ; [facility] Education and Decision Aids were provided during visit for: Patient education : Last Documented On 7 10:48AM ; [facility] STD screening offered and de clined Last Documented On 7 10:48AM ; [facility] Assessments Includes: Assessments for all patient encounters Findings Encounter Date Complex endometrial hyperplasia [employer] EXAM wit h ROSALIO MUNOZ MD 08/01/2017 Last Documented On 7 11:16AM ; [facility] Deep dyspareunia [employer] HELPER EXAM with ROSALIO MUNOZ MD 08/01/2017 Last Documented On 7 11:16AM ; [facility] Female pelvic pain [employer] G[employer] HELPER EXAM with ROSALIO WYNN MD 08/01/2017 Last Documented On 7 11:16AM ; [facility] Routine pelvic exam [employer] HELPER EXAM with ROSALIO BRANDT MD 08/01/2017 Last Documented On 7 11:16AM ; [facility] Instructions Includes: Instructions for all patient encounters Instructions to patient Instructions for patient : B reast Self Exam discussed Last Documented On 7 10:48AM ; [facility] Education and Decision Aids were provided during visit for: Patient education : Last Documented On 7 10:48AM ; [facility] STD screening offered and de clined Last Documented On 7 10:48AM ; [facility] Medical Equipment - Implanted Devices Includes: Current and historical Devices No Medical Equipment Recorded Medications Includes: Current and historical Medications Past Medications on file Estrace 0.1MG/GM Vaginal Cream 08/01/2017 - 07/27/2018 Provider: ROSALIO MUNOZ MD Diagnosis: Deep dyspareunia 1 gram vaginally three times per week Last Documented On 08/01/2017 11:08AM By ROSALIO MUNOZ MD ; [facility] Medications Administered Includes: Administered Medications in patient's chart No Administered Medications Recorded Results Includes: Results from 12/26/2023 through 12/26/2024 No Results Recorded For Specified Dates History of Present Illness History of Present Illness not supported for this document type No History of Present Illness Recorded Social History Description Last Updated In monogamous relationship 08/01/2017 Last Documented On 7 11:16AM ; [facility] Smoking status : Never smoker 08/01/2017 Last Documented On 7 11:16AM ; [facility] Medical History Includes: Medical History in patient's chart Description Last Updated Last pap smear date 201208/01/2017 Last Documented On 7 11:16AM ; [facility] LMP: 201408/01/2017 Last Documented On 7 11:16AM ; [facility] Result: abnormal 08/01/2017 Last Documented On 7 11:16AM ; [facility] A colonoscopy was performed 2 years ago in [place] 08/01/2017 Last Documented On 7 11:16AM ; [facility] History of menopause 201408/01/2017 Last Documented On 7 11:16AM ; [facility] Last mammogram date: 201108/01/2017 Last Documented On 7 11:16AM ; [facility] Patient recently had a dexa scan none Last Documented On 7 11:16AM ; [facility] Contraception: none 08/01/2017 Last Documented On 7 11:16AM ; [facility] 1 08/01/2017 Last Documented On 7 11:16AM ; [facility] Para 1 08/01/2017 Last Documented On 7 11:16AM ; [facility] Family History Includes: Family History in patient's chart Description Last Updated Family history of malignant neoplasm of large intestine pt mother 08/01/2017 Last Documented On 7 11:16AM ; [facility] Family history of malignant neoplasm of the ovary pt mother 08/01/2017 Last Documented On 7 11:16AM ; [facility] Review of Systems Review of Systems not supported for this document type No Review of Systems Recorded Mental Status No Mental Status Recorded Functional Status No Functional Status Recorded Physical Exam Physical Exam not supported for this document type No Physical Exam Recorded Allergies Includes: Active, inactive, and resolved Allergies No Known Allergies Clinical Notes Includes: Signed Clinical Notes starting from 12/02/2022 No Clinical Notes Recorded
--- OUTSIDE RECORDS SUMMARY | 2024-12-26 08:34 | XMS_ITS ---
Care Plan - [facility] Created on: December 26, 2024 KRISTIAN CEJA : 1965 Sex: Female Author Organization [facility] Address [address] [place] [address] Phone Care Team Providers Care Tip Bander Name Role Phone Unavailable Unavailable Unavailable
--- OUTSIDE RECORDS SUMMARY | 2024-12-26 08:34 | XMS_ITS | Clinical Summary ---
Author Organization [facility] Address [address] [place] [address] Phone Care Team Providers Care Lead Rider Name Role Phone Unavailable Unavailable Unavailable Reason for Visit and Chief Complaint The Chief Complaint is: annual- pt hasn't been sexually active in over a year because ever since she went through menopause she is so dry Plan of Treatment Vaginal dryness/dyspareunia: start Estrace cream Pelvic pain: check U/S h/o complex endometrial hyperplasia: present on D&C specimen 11/2012 and again on most recent EMBX I have on record from 02/2013 done in [place]. I do not believe she had any further testing after that, so if endometrium is thickened on U/S, she needs EMBX or D&C/hysteroscopy h/o atypical endometrial cells on pap 2012, pap repeated today - Last Documented On 08/01/2017 11:16AM ; [facility] Pending Tests Order Diagnosis Results Due Ordering [facility] @ other - *MAMMOGRAPHY SCREENING MAMMOGRAM Encntr screen mammogram for malignant neoplasm of breast 08/01/17 ROSALIO MUNOZ MD Last Documented On 8 11:57AM ; [facility] U/S @ LIEN - OB or JV U/S PTVT US Pelvic and perineal pain 08/01/17 ROSALIO MUNOZ MD Last Documented On 7 11:03AM ; [facility] Instructions to patient Instructions for patient : B reast Self Exam discussed Last Documented On 7 10:48AM ; [facility] Education and Decision Aids were provided during visit for: Patient education : Last Documented On 7 10:48AM ; [facility] STD screening offered and de clined Last Documented On 7 10:48AM ; [facility] Assessments Includes: Assessments from this encounter Findings - Routine pelvic exam - Last Documented On 08/01/2017 11:16AM ; [facility] - Complex endometrial hyperplasia - Last Documented On 08/01/2017 11:16AM ; [facility] - Deep dyspareunia - Last Documented On 08/01/2017 11:16AM ; [facility] - Female pelvic pain - Last Documented On 08/01/2017 11:16AM ; [facility] Instructions Includes: Instructions from this encounter Instructions to patient Instructions for patient : B reast Self Exam discussed Last Documented On 7 10:48AM ; [facility] Education and Decision Aids were provided during visit for: Patient education : Last Documented On 10:48AM ; [facility] STD screening offered and de clined Last Documented On 10:48AM ; [facility] Medical Equipment - Implanted Devices Includes: Current Devices No Medical Equipment Recorded Medications Includes: Medications discussed during this encounter and other current Medications New / Renewed during this visit ROSALIO MUNOZ MD on 08/01/2017 Estrace 0.1MG/GM Vaginal Cream Provider: ROSALIO MUNOZ MD 90 day supply: 1 tube, 3 refills Diagnosis: Deep dyspareunia 1 gram vaginally three times per week Last Documented On 08/01/2017 11:08AM By ROSALIO MUNOZ MD ; [facility] Medications Administered Includes: Administered Medications from this encounter No Administered Medications Recorded Vital Signs Includes: Vital Signs from this encounter Vital Name 08/01/2017 10:16A Blood Pressure Sitting (mmHg) 106/60 Height (in) 63 Weight (lb) 105 Body Mass Index (kg/m2) 18.6 Body Surface Area (m2) 1.5 Last Documented: On 08/01/2017 10:19A M ; [facility] Results Includes: Results discussed during this encounter No Results Recorded For Specified Dates History of Present Illness Includes: History of Present Illness from this encounter DINORAH CEJA is a 51 year old female. - No unusual bleeding. - Pelvic pain on the left off and on. - Deep pain during intercourse Lubricant doesn't help much - No vaginal discharge No bleeding since 2014. She used to have hot flashes and night sweats, but that has resolved Social History Description Last Updated In monogamous relationship 08/01/2017 Last Documented On 7 11:16AM ; [facility] Smoking status : Never smoker 08/01/2017 Last Documented On 7 11:16AM ; [facility] Procedures and Surgical History Includes: Procedures from this encounter Procedures Code Diagnosis Performing Provider Service L ocation Service Date Clinical summary provided to patient Last Documented On 7 10:48AM ; [facility] cervical Pap smear [id number] Last Documented On 7 10:48AM ; [facility] Medical History Includes: Medical History addressed during this encounter Description Last Updated Med Hx: noneMeds: [id number] rg Hx: D&C/HSC with Dr. 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 Hx: X 1, no PIH or GDMGyn Hx: h/o abnl pap/hyperplasia, no STDFam Hx: mother-lung and colon cancer, no known stone engraver cancer 08/01/2017 Last Documented On 7 11:13AM ; [facility] Last pap smear date 201208/01/2017 Last Documented On 7 11:16AM ; [facility] LMP: 201408/01/2017 Last Documented On 7 11:16AM ; [facility] Result: abnormal 08/01/2017 Last Documented On 7 11:16AM ; [facility] A colonoscopy was performed 2 years ago in [place] 08/01/2017 Last Documented On 7 11:16AM ; [facility] History of menopause 201408/01/2017 Last Documented On 7 11:16AM ; [facility] Last mammogram date: 201108/01/2017 Last Documented On 7 11:16AM ; [facility] Patient recently had a dexa scan none Last Documented On 7 11:16AM ; [facility] Contraception: none 08/01/2017 Last Documented On 7 11:16AM ; [facility] 1 08/01/2017 Last Documented On 7 11:16AM ; [facility] Para 1 08/01/2017 Last Documented On 7 11:16AM ; [facility] Family History Includes: Family History addressed during this encounter Description Last Updated Family history of malignant neoplasm of large intestine pt mother 08/01/2017 Last Documented On 7 11:16AM ; [facility] Family history of malignant neoplasm of the ovary pt mother 08/01/2017 Last Documented On 7 11:16AM ; [facility] Review of Systems Includes: Review of Systems from this encounter Systemic: No recent weight change. Head: No headache. Eyes: No vision problems. Otolaryngeal: No hoarseness. Cardiovascular: No chest pain or discomfort and no palpitations. Pulmonary: No shortness of breath. Gastrointestinal: Normal appetite. No nausea, no vomiting, and no hematochezia. No diarrhea and no constipation. Genitourinary: No nocturia. No urinary loss of control and no dysuria. Musculoskeletal: No arthralgias and no localized joint swelling. Neurological: No tingling and no numbness. Psychological: No anxiety, no depression, and no sleep disturbances. Mental Status Includes: Mental Status from this encounter Description No anxiety Functional Status Includes: Functional Status from this encounter No Functional Status Recorded Physical Exam Includes: Physical Exam from this encounter Allergies Includes: Active Allergies No Known Allergies Encounters Encounter Provider Location Date Check-In Time Check-Out Time Diagnosis NEW SAMPLE ROOM SUPERVISOR EXAM ROSALIO MUNOZ MD [facility] LUMITE INJECTOR 08/01/20 17 10:00AM 11:14AM Routine Pelvic Exam,Female Pelvic Pain,Dyspareuni a Deep,Endometria l Hyperplasia Complex Clinical Notes Includes: Clinical Notes from this encounter No Clinical Notes Recorded
--- OUTSIDE RECORDS SUMMARY | 2024-12-26 08:34 | XMS_ITS | Data Portability ---
[facility] Organization [facility] Address [address] [place] [address] Care Team Providers Care Authorization Coordinator Name Role Phone ERIKA LOZANO Primary Care Provider [phone] Assessment No assessment recorded. Plan of Treatment Reminders Order Date Submit Date Provider Last Modified By Organization Details Last Modified Time Details Appointments ANY 15 2024 09:30A M Erika Lozano, UPPER INSPECTOR, PALLIATIVE NURSE-C Not available Not available Not available Lab TSH, ultra-sen sitive, serum 2023 024 LAUREEN Carver, [address], [place], [address], 10/30/2024 08:23:19 CMP, serum or plasma 2023 024 LAUREEN Carver, [address], [place], [address], 10/30/2024 08:23:18 lipid panel, serum 2023 024 LAUREEN Carver, [address], [place], [address], 10/30/2024 08:23:17 CBC 2023 024 LAUREEN Carver, [address], [place], [address], 10/30/2024 08:23:20 vitamin D, 25-hydrox y, total, serum 2023 024 LAUREEN LABTATUM, [address] [place] [address] 2, [place], [address], 10/30/2024 08:23:22 Referral None recorded. Procedures None recorded. Surgeries None recorded. Imaging XR, ankle, 3 or more view 2023 024 [facility], [facility], [place], [address], 11/01/2024 12:55:04 MAMMO, screening , digital, bilateral 2023 024 [facility], [facility] [address], [place], [address], 12/26/2024 04:11:21 XR, elbow, 3 or more view 2023 024 [facility], [facility] [address], [place], [address], 11/01/2024 12:55:29 Medication Orders naproxen 500 mg tablet 2023 024 [facility], [address], [place], [address], 10/29/2024 10:50:40 triamcino lone acetonide 0.5 % topical cream [address] [id number], [address], [place], [place], [id number], 10/29/2024 10:43:04 Patient TargetsNo targets recorded. Patient Instructions Encounter Date Encounter Id Patient Instructions Last Modified By Organization Details Last Modified Time 10/29/2024 [id number] dermatitis: care instructions Not available 10/29/2024 10:42:58 Increase intake of fresh fruits, and vegetables. Avoid packaged foods and fast foods. Follow a low salt diet, drink at least 8-10 8oz glasses of water a day, exercise most days of the week. Take all medications as prescribed. Keep appointments with PCP and all specialists. Not available 10/29/2024 10:44:24 follow up in 6 months Not available 10/29/2024 10:44:17 Reason for Referral None Reported. Results Created Date Observation Date Name Description Value Unit Range Abnormal Flag Note LastModifiedBy Organization Detail LastModifiedTime 10/29/20 24 10/30/2024 LIPID PANEL cholesterol, total 239 mg/dL 100-19 9 above high normal Not Available [facility] ([facility]) [address] [place], [address], 10/30/2024 08:23:16 10/29/20 24 10/30/2024 LIPID PANEL triglyceride s 308 mg/dL 0-149 above high normal Not Available [facility] ([facility]) [address] [place], [address], 10/30/2024 08:23:16 10/29/20 24 10/30/2024 LIPID PANEL HDL cholesterol 37 mg/dL >39 below low normal Not Available [facility] ([facility]) [address] [place], [address], 10/30/2024 08:23:16 10/29/20 24 10/30/2024 LIPID PANEL VLDL cholesterol cary 57 mg/dL 5-40 above high normal Not Available [facility] ([facility]) [address] [place], [address], 10/30/2024 08:23:16 10/29/20 24 10/30/2024 LIPID PANEL LDL chol calc ([facility]) 145 mg/dL 0-99 above high normal Not Available [facility] ([facility]) [address] [place], [address], 10/30/2024 08:23:16 10/29/20 24 10/30/2024 COMP. METAB OLIC PANEL (14) glucose 95 mg/dL 70-99 Not Available [facility] ([facility]) [address] [place], [address], 10/30/2024 08:23:18 10/29/20 24 10/30/2024 COMP. METAB OLIC PANEL (14) BUN 12 mg/dL 6-24 Not Available [facility] ([facility]) [address] [place], [address], 10/30/2024 08:23:18 10/29/20 24 10/30/2024 COMP. METAB OLIC PANEL (14) creatinine 0.64 mg/dL 0.57-1 .00 Not Available [facility] ([facility]) [address] [place], [address], 10/30/2024 08:23:18 10/29/20 24 10/30/2024 COMP. METAB OLIC PANEL (14) eGFR 103 mL/mi n/1.7 3 >59 Not Available [facility] ([facility]) [address] [place], [address], 10/30/2024 08:23:18 10/29/20 24 10/30/2024 COMP. METAB OLIC PANEL (14) BUN/creatini ne ratio 19 9-23 Not Available [facility] ([facility]) [address] [place], [address], 10/30/2024 08:23:18 10/29/20 24 10/30/2024 COMP. METAB OLIC PANEL (14) sodium 142 mmol/ L 134-14 4 Not Available [facility] ([facility]) [address] [place], [address], 10/30/2024 08:23:18 10/29/20 24 10/30/2024 COMP. METAB OLIC PANEL (14) potassium 3.8 mmol/ L 3.5-5. 2 Not Available [facility] ([facility]) [address] [place], [address], 10/30/2024 08:23:18 10/29/20 24 10/30/2024 COMP. METAB OLIC PANEL (14) chloride 103 mmol/ L 96-106 Not Available [facility] ([facility]) [address] [place], [address], 10/30/2024 08:23:18 10/29/20 24 10/30/2024 COMP. METAB OLIC PANEL (14) carbon dioxide, total 26 mmol/ L 20-29 Not Available [facility] ([facility]) [address] [place], [address], 10/30/2024 08:23:18 10/29/20 24 10/30/2024 COMP. METAB OLIC PANEL (14) calcium 9.2 mg/dL 8.7-10 .2 Not Available [facility] ([facility]) [address] [place], [address], 10/30/2024 08:23:18 10/29/20 24 10/30/2024 COMP. METAB OLIC PANEL (14) protein, total 7.1 g/dL 6.0-8. 5 Not Available [facility] ([facility]) [address] [place], [address], 10/30/2024 08:23:18 10/29/20 24 10/30/2024 COMP. METAB OLIC PANEL (14) albumin 4.5 g/dL 3.8-4. 9 Not Available [facility] ([facility]) [address] [place], [address], 10/30/2024 08:23:18 10/29/20 24 10/30/2024 COMP. METAB OLIC PANEL (14) globulin, total 2.6 g/dL 1.5-4. 5 Not Available [facility] ([facility]) [address] [place], [address], 10/30/2024 08:23:18 10/29/20 24 10/30/2024 COMP. METAB OLIC PANEL (14) bilirubin, total 0.8 mg/dL 0.0-1. 2 Not Available [facility] ([facility]) [address] [place], [address], 10/30/2024 08:23:18 10/29/20 24 10/30/2024 COMP. METAB OLIC PANEL (14) alkaline phosphatase 73 IU/L 44-121 Not Available [facility]) [address] [facility], [place], [address], 10/30/2024 08:23:18 10/29/20 24 10/30/2024 COMP. METAB OLIC PANEL (14) AST (SGOT) 22 IU/L 0-40 Not Available [facility] ([facility]) [address] [facility], [place], [address], 10/30/2024 08:23:18 10/29/20 24 10/30/2024 COMP. METAB OLIC PANEL (14) ALT (SGPT) 22 IU/L 0-32 Not Available [facility] ([facility]) [address] [facility], [place], [address], 10/30/2024 08:23:18 10/29/20 24 10/30/2024 TSH RFX ON ABNOR MAL TO FREE T4 TSH 3.840 uIU/m L 0.450- 4.500 Not Available [facility] ([facility]) [address] [facility], [place], [address], 10/30/2024 08:23:19 10/29/20 24 10/29/2024 CBC, PLATE LET, NO DIFFE RENTI AL WBC 5.8 x10e3 /uL 3.4-10 .8 Not Available [facility] ([facility]) [address] [facility], [place], [address], 10/30/2024 08:23:20 10/29/20 24 10/29/2024 CBC, PLATE LET, NO DIFFE RENTI AL RBC 4.37 x10e6 /uL 3.77-5 .28 Not Available [facility] ([facility]) [address] [facility], [place], [address], 10/30/2024 08:23:20 10/29/20 24 10/29/2024 CBC, PLATE LET, NO DIFFE RENTI AL hemoglobin 13.8 g/dL 11.1-1 5.9 Not Available [facility] ([facility]) [address] [facility], [place], [address], 10/30/2024 08:23:20 10/29/20 24 10/29/2024 CBC, PLATE LET, NO DIFFE RENTI AL hematocrit 41.8 % 34.0-4 6.6 Not Available [facility] ([facility]) [address] [facility], [place], [address], 10/30/2024 08:23:20 10/29/20 24 10/29/2024 CBC, PLATE LET, NO DIFFE RENTI AL MCV 96 fL 79-97 Not Available [facility] ([facility]) [address] [facility], [place], [address], 10/30/2024 08:23:20 10/29/20 24 10/29/2024 CBC, PLATE LET, NO DIFFE RENTI AL MCH 31.6 pg 26.6-3 3.0 Not Available [facility] ([facility]) [address] [facility], [place], [address], 10/30/2024 08:23:20 10/29/20 24 10/29/2024 CBC, PLATE LET, NO DIFFE RENTI AL MCHC 33.0 g/dL 31.5-3 5.7 Not Available [facility] ([facility]) [address] [facility], [place], [address], 10/30/2024 08:23:20 10/29/20 24 10/29/2024 CBC, PLATE LET, NO DIFFE RENTI AL RDW 12.0 % 11.7-1 5.4 Not Available [facility] ([facility]) [address] [facility], [place], [address], 10/30/2024 08:23:20 10/29/20 24 10/29/2024 CBC, PLATE LET, NO DIFFE RENTI AL platelets 244 x10e3 /uL 150-45 0 Not Available [facility] ([facility]) [address] [facility], [place], [address], 10/30/2024 08:23:20 10/29/20 24 10/30/2024 VITAM IN D, 25-HY DROXY vitamin D, 25-hydroxy 45.4 NG/mL 30.0-1 00.0 Vitam in D defic iency has been defin ed by the Insti tute of Medic ine and an Endoc rine Socie ty pract ice guide line as a level of serum 25-OH vitam in D less than 20 ng/mL (1,2) . The Endoc rine Socie ty went on to furth er defin e vitam in D insuf ficie ncy as a level betwe en 21 and 29 ng/mL (2). 1. IOM (Inst itute of Medic ine). 2009. Dieta ry refer ence intak es for calci um and D. Navdeep white [place]: The Natio nal [facility] Press . 2. Yesenia garg MF, Marlon ey [place], Anahi off-F errar i HUGGINS, et al. Evalu ation , treat ment, and preve ntion of vitam in D defic iency : an Endoc rine Socie ty clini cary pract ice guide line. JCEM. 2010; 96(7) :1911 -30. Not Available [facility] ([facility]) [address] [facility], [place], [address], 10/30/2024 08:23:22 10/29/20 24 09/19/2023 DEXA No observ ation record ed. [email or web address] Not Available 10/13 15:05:37 10/29/20 24 MAMMO , deirdre naidu, digit al, bilat eral No observ ation record ed. [email or web address] Not Available 10/13 15:06:09 10/29/20 24 US, osman t, unila teral No observ ation record ed. [email or web address] Not Available 10/13 15:06:56 11/01/20 24 11/01/2024 XR, ankle , 3 or more view No observ ation record ed. [place] [address], [place], [address], 11/05/2024 12:32:29 11/01/20 XR, elbow , 3 or more view No observ ation record ed. [facility] [address], [place], [address], 11/05/2024 12:32:30 Result Notes None recorded. 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 Procedures Surgical History Date Name Laterality Status Provider Name and Address Organization Details Recorded Time loop electrosurgical excision procedure completed CJ Hawley [facility] 10/29/2024 10:46:23 Imaging Results Imaging Date Name Status LastModified by [facility] Details LastModified Time 09/19/2023 DEXA completed Information n ot available 10/29/2024 15:05:37 10/29/2024 MAMMO, screening, digital, bilateral completed Information not available 10/29/2024 15:06:09 10/29/2024 US, breast, unilateral completed Information not available 10/29/2024 15:06:56 11/01/2024 XR, ankle, 3 or more view completed [place] [address], [place], [address], 11/05/2024 12:32:29 11/01/2024 XR, elbow, 3 or more view completed [facility] [address], [place], [address], 11/05/2024 12:32:30 Procedure Notes None recorded. Medical Equipment None Reported. Allergies No known drug allergies Medications Name Sig Start Date Stop Date Status Note LastModified by Organization Details LastModified Time atorvastatin 20 mg tablet Take 1 tablet every day by oral route in the evening. active Not Available Not Available No t Available triamcinolone acetonide 0.5 % topical cream APPLY A THIN LAYER TO THE AFFECTED AREA(S) BY TOPICAL ROUTE 2 TIMES PER DAY active Not Available Not Available No t Available naproxen 500 mg tablet Take 1 tablet twice a day by oral route as needed. 2023 active Not Available Not Available Not Avai lable Vitals Date Recorded Body weight Body mass index (BMI) Body height Oxygen saturation Oxygen saturation in Arterial blood by Pulse oximetry Respiratory rate Body temperature Heart rate Systolic blood pressure Diastolic blood pressure Provider Name and Address Organization Details Last Updated DateTime 4 16820.3 5 g 20.5 kg/m2 157.48 cm 97 % 97 % 16 /min 97.5 [degF] 70 /min 124 mm[Hg] 80 mm[Hg] CJ Hawley - [facility] 10:16:45 Social History Question Answer Notes LastModified by Organizat ion Details LastModified Time Tobacco Smoking Status Never Smoker CJ Hawley null, [place] - [facility] 10/29/2024 10:11:01 What Is Your Level Of Alcohol Consumption? None Information not available 10/29/2024 Are You Blind Or Do You Have Difficulty Seeing? No Information n ot available 10/29/2024 What Is Your Level Of Caffeine Consumption? Moderate Tea Information not available 10/29/2024 In The 14 Days Before Symptom Onset, Have You Had Close Contact With A Laboratory-confirm ed COVID-19 While That Case Was Ill? No Information n ot available 10/29/2024 In The 14 Days Before Symptom Onset, Have You Had Close Contact With A Person Who Is Under Investigation For COVID-19 While That Person Was Ill? No Information not available 10/29/2024 Have You Been To An Area Known To Be High Risk For COVID-19? No Information not available 10/29/2024 Are You Currently Employed? No Information not available 10/29/2024 Are You Deaf Or Do You Have Serious Difficulty Hearing? No Information not available 10/29/2024 What Type Of Diet Are You Following? REGULAR Information n ot available 10/29/2024 Are There Any Guns Present In Your Home? Yes Information not available 10/29/2024 What Was The Date Of Your Most Recent Tobacco Screening? 10/29/2024 Information not available 10/29/2024 How Many Children Do You Have? 1 Information not available 10/29/2024 What Is Your Relationship Status? Information not available 10/29/2024 Do You Use Your Seat Belt Or Car Seat Routinely? Yes Information not available 10/29/2024 Are You Sexually Active? Yes Information not available 10/29/2024 Do You Have Smoke And Carbon Monoxide Detectors In Your Home? Yes Information not available 10/29/2024 Are You Passively Exposed To Smoke? No Information no t available 10/29/2024 Do You Feel Stressed (tense, Restless, Nervous, Or Anxious, Or Unable To Sleep At Night)? [id number] Information not available 10/29/2024 Do You Use Any Illicit Or Recreational Drugs? No Information not available 10/29/2024 Do You Use Sunscreen Routinely? Yes Information not available 10/29/2024 Has Tobacco Cessation Counseling Been Provided? No Information not available 10/29/2024 Do You Or Have You Ever Used Any Other Forms Of Tobacco Or Nicotine? No Information not available 10/29/2024 Sex: Female Functional Status Question Answer Note LastModified by Organizat ion Details LastModified Time Are you able to care for yourself? Yes Information not available 10/29/2024 What is your exercise level? Occasional Information not available 10/29/2024 Mental Status None recorded. Family History Relationship Description Onset Age of this Age Resolved Age Notes LastModified by Organization Details LastModified Time Maternal Grandfather Cerebrovascu lar accident [email or web address] Not available 1 12/30/2023 10:09:18 Mother Malignant tumor of lung [email or web address] Not available 10/13 10:09:52 Mother Malignant tumor of colon [email or web address] Not available 10/13 10:09:59 Medical History No medical history recorded. Gynecological History Statement/Question Response If Post Menopausal, Age at Menopause 52 Current Control Method Menopause Date of Last Mammogram Date of LMP Obstetrics History GPAL:G 1 P 1 0 0 1 Type Value Full Term 1 Living 1 Total 1 Immunizations Vaccine Type Date Status Note Provider Nam e and Address Organization Details Recorded Time COVID-19, mRNA, LNP-S, PF, 30 mcg/0.3 mL dose 02/12/2021 completed Erika Lozano, UPPER INSPECTOR, PALLIATIVE NURSE-C Attn: [address] [place], [place], [address] [place] [address], [place] - [facility] 10/29/2024 10:27:16 COVID-19, mRNA, LNP-S, PF, 30 mcg/0.3 mL dose 03/05/2021 completed Erika Lozano UPPER INSPECTOR, PALLIATIVE NURSE-C Attn: [address] [place], [address] [place] [address], [place] - [facility] 10/29/2024 10:27:16 COVID-19, mRNA, LNP-S, PF, 30 mcg/0.3 mL dose 10/04/2021 completed Erika Lozano UPPER INSPECTOR, PALLIATIVE NURSE-C Attn: [address] [place], [address] [place] [address], [place] - [facility] 10/29/2024 10:27:16 Tdap 07/06/2022 completed Erika Lozano UPPER INSPECTOR, PALLIATIVE NURSE-C Attn: [address] [place], [address], [facility] - [facility] 10/29/2024 10:27:16 Past Encounters Encounter ID Performer Location Encounter Start Date Encounter Closed Date Diagnosis/Indication Diagnosis SNOMED-CT Code Diagnosis ICD10 Code Diagnosis Note [id number] Erika Lozano APN, FNP-C [place] ([facility]) [address] [place] [address] 10/29/2024 09:48:26 11/07/2024 13:02:38 Adult health examination 920820484 Z00.01 Encouraged routine vision, dental exams, well balanced diet. Osteopenia 841356253 M85 .80 DEXA 2022, cont vit D Bilateral medial epicondylitis of elbows 7841938328 0917070 M77.01 M77.02 zach elbow pain 2 month, no prior imaging, will order xray, has been using brace but it is bothering her skin,prn naproxen for elbows Contact dermatitis 78064 004 L25.9 elbows from wearing brace, advised to stop, apply steroid cream Pain of le ft ankle joint 1964199637 7974767 M25.572 sprain 2 years ago, still has pain, worse with cold weather Screening mammography of bilateral breasts 6824613698 63885 Z12.31 Health Concerns Section Related Observation LastModified by Organization Detai ls LastModified Time None Recorded Concern Status LastModified by Organization Details LastModified Time None Recorded Advance Directives Directive None Recorded Payers Encounter Date Sequence Insurance Name Policy Number Policy Bowman Covered Member ID Bowman Member ID Guarantor Name 10/29/2024 1 [employer] - [employer] ( SUPPLEMENT) Mary Chau [id number] Bassamhuey Chau Notes Date Note Type Note Provider Name and Address Organization Details Recorded Time 10/29/2024 text/html here to est care, last pcp recently . runda fransisca-kenny pt c/o bilateral arm pain. states her right hand is worse. pain radiates from elbow to hand and states she cannot lift much weight anymore on the right. states the pain started about a year ago.takes otc vitamin D- abnormal DEXA scan last year Erika Lozano APN, FNP-C Attn: [employer],[address] , [place], [address], [place] - [facility] 11/04/2024 18:14:53 OBGyn Episode No OBEpisode recorded.
--- OUTSIDE RECORDS SUMMARY | 2024-12-26 08:34 | XMS_ITS | Referral Summary ---
Author Organization [facility] Physician Office Building [address] [place] [id number] Care Team Providers Care Trash Man Name Role Phone Juilanne Swanson MD Primary Care Provider [phone] Allergies No known active allergies Medications omeprazole (PriLOSEC) 20 mg capsule 03/05/2019 Active raNITIdine (ZANTAC) 300 mg tablet Take 1 tablet (300 mg total) by mouth nightly 30 tablet 2 03/11/2019 Active estradiol (ESTRACE) 0.01 % (0.1 mg/gram) vaginal cream 1 g Active atorvastatin (LIPITOR) 10 mg tablet Take 10 mg by mouth daily Active Active Problems Problem Noted Date Diagnosed Date Abnormal mammography 03/25/2019 Laryngopharyngeal reflux (LPR) 03/13/2019 Assessment & Plan (03/13/2019 12:07 PM CDT): Based on patient's history my physical findings I am suspicious that the patient's symptoms are result of extra esophageal reflux disease. Patient will be placed on ranitidine 300 mg q.h.s.. He is to continue with the omeprazole 20 mg every morning 30 minutes prior to meal. Patient was provided with educational material pertaining to reflux precautions and lifestyle changes. We talked about dietary changes. Patient was provided with educational material regarding reflux precautions. Patient was instructed to refrain from eating a meal approximately 3 hours prior to bedtime. Patient was instructed to elevate the head of the bed by approximately 8 inches. Patient was to refrain from consuming spicy greasy fatty foods, dairy products, and excessive caffeine use. Patient was also advised to increase water consumption. Patient was also instructed on weight reduction and exercise regimen. Patient was also instructed on the importance of compliance with medications. Follow back up in three months to reassess response to treatment. Social History Tobacco Use Types Packs/Day Years Used Date Smoking Tobacco: Never Smokeless Tobacco: Never Alcohol Use Standard Drinks/Week Comments Never 0 (1 standard drink = 0.6 oz pur e alcohol) AUDIT-C Answer Date Recorded Q1: How often do you have a drink containing alc ohol? 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 Gender Identity Not on file Sexual Orientation Not on file Last Filed Vital Signs Vital Sign Reading Time Taken Comments Blood Pressure 102/80 03/11/2019 1:02 PM CDT Pulse 78 03/11/2019 1:02 PM CDT Temperature - - Respiratory Rate 16 03/11/2019 1:02 PM CDT Oxygen Saturation 96% 03/11/2019 1:02 PM CDT Inhaled Oxygen Concentration - - Weight 47.6 kg (105 lb) 06/24/2021 2:22 PM CDT Height 160 cm (5' 3 ) 06/24/2021 2:22 PM CDT Body Mass Index 18.6 06/24/2021 2:22 PM CDT Plan of Treatment Not on file Insurance [facility] CLAIM[facility] [employer] Care Teams Trash Man Relationship Specialty Start Date End Date Julianne Swanson MD PCP - General Family Medicine 01/30/19
--- OUTSIDE RECORDS SUMMARY | 2024-12-26 08:34 | XMS_ITS | Clinical Summary ---
Author Organization [facility] Address [address] [place] [address] Phone Care Team Providers Care Boatbuilder Apprentice Wood Name Role Phone Unavailable Unavailable Unavailable Reason for Visit and Chief Complaint CANCELLED Plan of Treatment No Plan of Treatment Recorded Assessments Includes: Assessments from this encounter No Assessments Recorded Medical Equipment - Implanted Devices Includes: Current Devices No Medical Equipment Recorded Medications Administered Includes: Administered Medications from this encounter No Administered Medications Recorded Results Includes: Results discussed during this encounter No Results Recorded For Specified Dates History of Present Illness Includes: History of Present Illness from this encounter No History of Present Illness Recorded Social History No Social History Recorded - Smoking Status Unknown Medical History Includes: Medical History addressed during this encounter No Medical History Recorded Family History Includes: Family History addressed during this encounter No Family History Recorded Review of Systems Includes: Review of Systems from this encounter No Review of Systems Recorded Mental Status Includes: Mental Status from this encounter No Mental Status Recorded Functional Status Includes: Functional Status from this encounter No Functional Status Recorded Physical Exam Includes: Physical Exam from this encounter No Physical Exam Recorded Allergies Includes: Active Allergies No Known Allergies Encounters Encounter Provider Location Date Check-In Time Check-Out Time Diagnosis CANCELLED [facility] ACCOUNTING ADMINISTRATIVE ASSISTANT 08/07/2017 1:30PM 1:30PM Clinical Notes Includes: Clinical Notes from this encounter No Clinical Notes Recorded
--- OUTSIDE RECORDS SUMMARY | 2024-12-26 08:34 | XMS_ITS | Clinical Summary ---
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 Name Role Phone Carie Worrell MD Primary Care Provider [phone] Social History Tobacco Use Types Packs/Day Years Used Date Smoking Tobacco: Never Assessed Comments Unknown Sex and Gender Information Value Date Recorded Sex Assigned at Not on file Legal Sex Female 8:45 PM CDT Gender Identity Not on file Sexual Orientation Not on file Plan of Treatment Health Maintenance Due Date Last Done Comments Hepatitis C Virus (HCV) Screening 1967 TdaP Immunization 1967 Hepatitis B Immunization (1 of 3 - 19+ 3-dose series) 1986 Pap Smear 1988 Cervical Cancer Screening (CCS) 1997 HPV/Cotest 1997 Colonoscopy 2012 Colorectal Cancer Screening 2012 Cologuard 2017 Immunochemical Fecal Occult Blood 2017 Mammogram 2017 Pneumococcal Immunization (5 0+ years) (1 of 1 - PCV) 2017 Zoster Immunization (1 of 2) 2017 Influenza Immunization (#1) 2024 SARS-COV-2 Immunization ( - season) 2024 Respiratory Syncytial Virus (RSV) Immunization (Adult) (1 - 1-dose 75+ series) 2042 Meningococcal Immunization (ACWY) Aged Out No longer eligible based on patient's age to complete this topic Pneumococcal Immunization Combined Aged Out No longer eligible based on patient's age to complete this topic Rotavirus Immunization Aged Out No lo nger eligible based on patient's age to complete this topic Care Teams Cafe Or Restaurant Manager Relationship Specialty Start Date End Date Carie Worrell MD PCP - General Obstetrics & Gynecology 08/09/17
--- OUTSIDE RECORDS SUMMARY | 2024-12-26 08:34 | XMS_ITS | Clinical Summary ---
Author Organization [facility] [address] [place] [id number] Care Team Providers Care Service Aide Name Role Phone Julianne Swanson MD Primary Care Provider [phone] Allergies No known active allergies Medications omeprazole [...] three months to reassess response to treatment. 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
== END 2024-12-26 08:31 | disposition home or self-care (01) ==
PROVIDERS: PCP Nurse Practitioner Family; Visit Provider Nurse Practitioner Family
DX: Z12.31 Encounter for screening mammogram for malignant neoplasm of breast (principal); R92.8 Other abnormal and inconclusive findings on diagnostic imaging of breast
CPT/HCPCS: 77063; 77067